=== PATIENT | female | born 1970 | race Caucasian/White ===

== ENCOUNTER → 2016-12-05 | Outpatient (CLI) | payer OTHER ==
--- NOTE | 2016-12-05 13:07 | DX ---
Chest, PA and Lateral History: Chest wall and sternal pain, R05, R07, K21.9, R07.81, GE reflux, pleurodynia Comparison: June 04, 2006 PA chest Findings: Lungs are clear, without infiltrate or consolidation. Heart size is normal. There is no garry nopathy or mass lesion. There is no pleural effusion or pneumothorax. Bones are unremarkable for age. Specifically no rib or sternal abnormality identified Upper anterior abdominal surgical clips sugges t previous cholecystectomy. Impression: Negative.
== END ==
LOC: FIMAGING 10:40
PROVIDERS: ATTEND Family Medicine
DX: R05 Cough (principal); R07.89 Other chest pain; K21.9 Gastro-esophageal reflux disease without esophagitis; R07.81 Pleurodynia

== ENCOUNTER → 2016-12-15 | Outpatient (CLI) | payer OTHER | LOC: FIMAGING 11:01 | DX: Z12.31 Encounter for screening mammogram for malignant neoplasm of breast (principal) | CPT/HCPCS: G0202 ==